=== PATIENT | male | born 1965 | race Caucasian/White ===

== ENCOUNTER 2017-08-17 08:33 | Day surgery (SDC) | payer BC ==
[~2017-08-17 08:33] MED LIST: ACETAMINOPHEN 1,000 MG/100 ML BTL IV ONE; CEFAZOLIN 1 Gram 1 GM/50 ML BAG IVPB ONE; FAMOTIDINE 20MG TABLET PO ONE; MECLIZINE 25 MG TABLET PO ONE; METOCLOPRAMIDE 10 MG TABLET PO ONE
[2017-08-17] MEDS ORDERED: LIDOCAINE 2% MDV (20MG/ML) 20ML VIAL IV ONE (08:34)
[2017-08-17] MEDS ORDERED: PROPOFOL 10 MG/ML VIAL IV ONE (08:34)
[2017-08-17] MEDS ORDERED: SCOPOLAMINE 1 PATCH TDSY TD ONE (08:34)
[2017-08-17] MEDS ORDERED: BUPIVACAINE 0.25% W/EPI MPF 30ML VIAL IVP ONE (08:34)
[2017-08-17] MEDS ORDERED: ONDANSETRON HCL IV 4 MG/2 ML VIAL IVP ONE (08:34)
--- NOTE | 2017-08-19 07:21 | Operative Note ---
DATE OF SURGERY: 08/17/2017 Surgeon: Jsoe L Velázquez DO PREOPERATIVE DIAGNOSIS: Right arm mass. POSTOPERATIVE DIAGNOSIS: Right arm mass. OPERATION: Excision of right arm mass. Indication: The patient is a 51-year-old male who is noted to have a soft tissue mass in the medial aspect of his right upper arm. We did discuss exacerbation. Risks, benefits, and alternatives were discussed. Risks include bleeding, infection, acute or chronic pain, recurrence. He understood this fully. PROCEDURE: Thereafter, consent was signed and questions answered. The patient was taken to the operating room and placed in a supine position. Local IV sedation was given per the department of anesthesia. The patient's right arm was prepped and draped in the usual fashion. The area around the mass was anesthetized with a total of 8 mL of 0.25% Sensorcaine with epinephrine. A 4 cm incision was made. This was carried down to the capsule of a multilobulated lipoma. This was dissected free from the surrounding tissue and passed off the field. This was measured about 5 cm into the subcu. Wound was then closed with 3-0 and 4-0 Vicryl. He was taken to the recovery room in satisfactory condition. Final pathology pending. CC: BAYLEE SIMONS MD, FACP [facility]
== END 2017-08-17 10:40 | disposition home or self-care (01) ==
LOC: SUR 08:33
PROVIDERS: ATTEND Surgery
DX: D17.21 Benign lipomatous neoplasm of skin and subcutaneous tissue of right arm (principal)
CPT/HCPCS: 11404; 00400; 12032; J2405; J0690